=== PATIENT | female | born 1955 | race Caucasian/White ===

== ENCOUNTER → 2018-01-30 | Outpatient (CLI) | payer OTHER | END | disposition home or self-care (01) | LOC: CFH 14:08 | PROVIDERS: ATTEND Genetic Counselor, MS | DX: Z12.31 Encounter for screening mammogram for malignant neoplasm of breast (principal) | CPT/HCPCS: 77063; 77067 ==

== ENCOUNTER → 2018-02-12 | Outpatient (CLI) | payer OTHER | END | disposition home or self-care (01) | LOC: CFH 10:07 | PROVIDERS: ATTEND Genetic Counselor, MS | DX: Z13.820 Encounter for screening for osteoporosis (principal); J32.4 Chronic pansinusitis; Z78.0 Asymptomatic menopausal state | CPT/HCPCS: 70486; 77080 ==

== ENCOUNTER 2019-02-05 14:29 | Outpatient (CLI) | payer OTHER | END 2019-02-05 23:59 | disposition home or self-care (01) | LOC: CFH 14:29 | PROVIDERS: ATTEND Genetic Counselor, MS | DX: Z12.31 Encounter for screening mammogram for malignant neoplasm of breast (principal) | CPT/HCPCS: 77063; 77067 ==